=== PATIENT | female | born 1990 | race African-American/Black ===

== ENCOUNTER 2018-04-28 11:15 | Day surgery (SDC) | payer OTHER ==
[~2018-04-28 11:15] MED LIST: ONDANSETRON 4 MG/2 ML VIAL IVP PRN
[2018-04-28] MEDS ORDERED: SODIUM CHLORIDE 0.9% 1,000 ML IV ONE (11:34)
[2018-04-28] MEDS ORDERED: ONDANSETRON 4 MG/2 ML VIAL IVP STA ×2 (11:34→14:46)
[2018-04-28] MEDS ORDERED: KETOROLAC 30 MG/ML VIAL IVP STA (11:34)
--- NOTE | 2018-04-28 11:37 | ED Physician Documentation ---
PD HPI ABD PAIN - Stated complaint Stated Complaint: ABD PX - Chief complaint Chief Complaint: Abd Pain - History obtained from History obtained from: Patient - History of Present Illness Timing - onset: Enter time (0500), Today Timing - duration: Hours Timing - details: Abrupt onset, Still present Quality: Sharp, Pain Location: RUQ Improved by: Laying still Worsened by: Moving, Breathing, Position, Palpation Associated symptoms: Nausea Similar symptoms before: Diagnosis (gallstones) Recently seen: Clinic - Additional information Additional information: 27-year-old female with a history of gallstones has been sent to the emergency department from the primary care clinic at the [place] with acute right upper quadrant abdominal pain. The patient reports that this pain awoke her from sleep this morning it is severe and unrelenting. She has previously been diagnosed with gallstones and she has had numerous episodes of pain never this bad. She states that when she has gone into talk about her gallbladder being removed they were unable to find stones. 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 - Past Surgical History Past Surgical History: Yes /PODIATRIST ASSISTANT: Other - Present Medications Home Medications: Ambulatory Orders Medication Instructions Recorded Confirmed Norgestimate-Ethinyl Estradiol 1 tab PO DAILY 04/28/18 04/28/18 [Ortho Tri-Cyclen Lo Tablet] Pantoprazole [Protonix] 40 mg PO DAILY 04/28/18 04/28/18 RX: Ibuprofen 600 mg PO PRN PRN 04/28/18 04/28/18 Triamcinolone 0.1% Cream [Kenalog 1 applic TOP BID PRN 04/28/18 04/28/18 0.1% Cream] - Allergies Allergies/Adverse Reactions: Allergies Allergy/AdvReac Type Severity Reaction Status Date / Time No Known Drug Allergies Allergy Verified 04/28/18 11:22 - Social History Does the pt smoke?: No Smoking Status: Never smoker Does the pt drink ETOH?: Yes Does the pt have substance abuse?: No PD ED PE NORMAL - Vitals Vital signs reviewed: Yes (normal ) - General General: Alert and oriented X 3, Well developed/nourished, Other (27 y/o female appears to be in 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 ) - HEENT HEENT: Atraumatic, PERRL, EOMI - Neck Neck: Supple, no meningeal sign - Cardiac Cardiac: RRR, No murmur - Respiratory Respiratory: No respiratory distress, Clear bilaterally - Abdomen Abdomen: Soft, Other (RUQ tenderness is obvious and reproducible in location. The gallbladder is sonographically tender. There is no right lower quadrant tenderness to palpation. ) - Back Back: No CVA TTP, No spinal TTP - Derm Derm: Normal color, Warm and dry, No rash - Extremities Extremities: No deformity, No edema - Neuro Neuro: Alert and oriented X 3, mirror maker 2-12 intact, No motor deficit, No sensory deficit, Normal speech Eye Opening: Spontaneous Motor: Obeys Commands Verbal: Oriented GCS Score: 15 - Psych Psych: Normal mood, Normal affect Results - Vitals Vitals: Vital Signs - 24 hr 04/28/18 04/28/18 04/28/18 11:20 11:22 14:21 Temperature 36.2 C L Heart Rate 98 73 Respiratory 18 Rate Blood Pressure 140/105 H 132/83 H O2 Saturation 97 17 L 04/28/18 04/28/18 16:57 18:08 Temperature Heart Rate 89 78 Respiratory 18 18 Rate Blood Pressure 115/78 109/78 O2 Saturation 99 99 Oxygen O2 Source Room air - Labs Labs: Laboratory Tests 04/28/18 04/28/18 04/28/18 11:46 11:46 11:46 WBC 12.1 H RBC 3.94 L Hgb 12.3 Hct 36.8 L MCV 93.4 MCH 31.3 H MCHC 33.5 RDW 12.4 Plt Count 298 MPV 8.0 Neut # (Auto) 9.5 H Lymph # (Auto) 1.7 Rooks # (Auto) 0.7 Eos # (Auto) 0.2 Baso # (Auto) 0.0 Absolute Nucleated RBC 0.00 Nucleated RBC % 0.0 Sodium 137 Potassium 3.7 Chloride 103 Carbon Dioxide 23 Anion Gap 11.0 BUN 7 Creatinine 0.7 Estimated GFR (MDRD) 121 Glucose 93 Calcium 8.5 Total Bilirubin 0.8 AST 17 ALT 16 Alkaline Phosphatase 45 Troponin I < 0.04 Total Protein 7.3 Albumin 3.8 Globulin 3.5 Albumin/Globulin Ratio 1.1 Lipase 31 Urine Color Urine Clarity Urine pH Ur Specific [place] Urine Protein Urine Glucose (UA) Urine Ketones Urine Occult Blood Urine Nitrite Urine Bilirubin Urine Urobilinogen Ur Leukocyte Esterase Urine RBC Urine WBC Ur Squamous Epith Cells Urine Bacteria Ur Microscopic Review Urine Culture Comments Urine HCG, Qual 04/28/18 13:20 WBC RBC Hgb Hct MCV MCH MCHC RDW Plt Count MPV Neut # (Auto) Lymph # (Auto) Rooks # (Auto) Eos # (Auto) Baso # (Auto) Absolute Nucleated RBC Nucleated RBC % Sodium Potassium Chloride Carbon Dioxide Anion Gap BUN Creatinine Estimated GFR (MDRD) Glucose Calcium Total Bilirubin AST ALT Alkaline Phosphatase Troponin I Total Protein Albumin Globulin Albumin/Globulin Ratio Lipase Urine Color YELLOW Urine Clarity CLEAR Urine pH 7.0 Ur Specific [place] 1.015 Urine Protein NEGATIVE Urine Glucose (UA) NEGATIVE Urine Ketones NEGATIVE Urine Occult Blood SMALL H Urine Nitrite NEGATIVE Urine Bilirubin NEGATIVE Urine Urobilinogen 0.2 (NORMAL) Ur Leukocyte Esterase TRACE H Urine RBC None Seen Urine WBC 0-3 Ur Squamous Epith Cells MANY Squamous H Urine Bacteria None Seen Ur Microscopic Review INDICATED Urine Culture Comments NOT INDICATED Urine HCG, Qual NEGATIVE - Rads (name of study) gb ultrasound Radiology: Prelim report reviewed (Impression: No findings of cholelithiasis or cholecystitis.), EMP read indepedently, See rad report Procedures - Bedside sono Bedside sono by EMP: With use of bedside ultrasound the right upper quadrant is imaged the gallbladder is sonographically tender there is evidence of sludge. The gallbladder wall thickness is 0.4 cm. There is no pericholecystic fluid and the gallbladder is not particularly distended. PD MEDICAL DECISION MAKING - ED course Complexity details: considered differential, d/w patient ED course: 27-year-old female with history of gallstones has acute purulent biliary colic and a very tender gallbladder. I do not see evidence of cholecystitis on the bedside ultrasound with the exception of the tender gallbladder on palpation. She does persistent pain, elevated WBC and she does get some relief with the use of dilaudid and zofran. Her diagnostic ultrasound is underwhelming and looks like there may be some sludge. Dr. Dunn is consulted in the case and will evaluate the patient when he is done with his clinic patients. Departure - Departure Disposition: ED Transfer to [facility] Clinical Impression: Gallbladder disease
[2018-04-28 11:52] LABS: BASOPHILS % (AUTO) 0.2 %; EOSINOPHILS # (AUTO) 0.2 10^3/uL (0.0-0.7); EOSINOPHILS % (AUTO) 1.2 %; HGB - HEMOGLOBIN 12.3 g/dL (12.0-16.0); LYMPHOCYTES # (AUTO) 1.7 10^3/uL (1.5-3.5); LYMPHOCYTES % (AUTO) 13.9 %; MEAN CORPUSCULAR HEMOGLOBIN 31.3 pg (27.0-31.0); MEAN CORPUSCULAR HGB CONC 33.5 g/dL (32.0-36.0); MEAN CORPUSCULAR VOLUME 93.4 fL (81.0-99.0); MONOCYTES # (AUTO) 0.7 10^3/uL (0.0-1.0); MONOCYTES % (AUTO) 6.1 %; NEUTROPHILS # (AUTO) 9.5 10^3/uL (1.5-6.6); NEUTROPHILS % (AUTO) 78.6 %; PLT - PLATELET COUNT 298 10^3/uL (130-450); RED BLOOD COUNT 3.94 10^6/uL (4.20-5.40); RED CELL DISTRIBUTION WIDTH 12.4 % (12.0-15.0); WHITE BLOOD COUNT 12.1 x10^3/uL (4.8-10.8)
[2018-04-28] MEDS ORDERED: HYDROmorphone 1 MG/ML CARPUJECT IVP STA ×3 (11:56→19:26)
[2018-04-28] MEDS ORDERED: HYDROmorphone 1 MG/ML CARPUJECT ONE (12:02)
[2018-04-28 12:09] LABS: ALBUMIN 3.8 g/dL (3.2-5.5); ALBUMIN/GLOBULIN RATIO 1.1 (1.0-2.2); BILIRUBIN,TOTAL 0.8 mg/dL (0.2-1.0); CALCIUM 8.5 mg/dL (8.5-10.3); CREATININE 0.7 mg/dL (0.4-1.0); TOTAL PROTEIN 7.3 g/dL (6.7-8.2)
[2018-04-28 13:39] LABS: BILIRUBIN,URINE NEGATIVE (NEGATIVE); GLUCOSE, URINE (UA) NEGATIVE (NEGATIVE); KETONES,URINE (UA) NEGATIVE (NEGATIVE); LEUKOCYTE ESTERASE, URINE TRACE (NEGATIVE); NITRITE,URINE NEGATIVE (NEGATIVE); OCCULT BLOOD,URINE SMALL (NEGATIVE); PROTEIN,URINE NEGATIVE (NEGATIVE); UROBILINOGEN,URINE 0.2 (NORMAL) E.U./dL (NORMAL)
[2018-04-28 13:40] LABS: CLARITY,URINE CLEAR (CLEAR); HCG UR QUAL NEGATIVE
[2018-04-28 13:45] LABS: RBC,URINE None Seen /HPF (0-5)
[2018-04-28 13:46] LABS: BACTERIA,URINE None Seen /HPF (None Seen); SQUAMOUS EPITHELIAL CELL,UR MANY Squamous (<= Few)
--- NOTE | 2018-04-28 14:28 | Ultrasound Report ---
Reason: RUQ pain Procedure Date: 04/28/2018 Accession Number: [id number] / [id number] Procedure: US - Abdomen Limited CPT Code: FULL RESULT: EXAM: Abdomen Limited DATE: 04/28/2018 1:06 PM CLINICAL HISTORY: RUQ pain COMPARISON: None. TECHNIQUE: Real-time scanning was performed with static images obtained. FINDINGS: Liver: Normal echotexture. 16.6 cm longitudinally. Normal directional portal venous blood flow. Gallbladder: No stones. Borderline gallbladder wall thickness 3.6 mm. Common bile duct: 5.4 mm Right kidney: 9.4 cm. No hydronephrosis. Free fluid: None IMPRESSION: No findings of cholelithiasis or cholecystitis. RADIA
[2018-04-28] MEDS: HYDROmorphone 1 MG/ML CARPUJECT IVP STA ×2 (15:11)
--- NOTE | 2018-04-28 19:29 | CONSULTATION NOTE ---
Referring Provider Name of Referring Provider:: Dr. Charles Pride Consult Date: 04/28/18 Chief Complaint - Chief Complaint Chief Complaint: Severe postprandial right upper quadrant pain History of Present Illness - Admitted From Admitted From:: Outpatient - History Obtained From Records Reviewed: Yes History obtained from: Patient Exam Limitations: Lack of documentation from [facility] - History of Present Illness HPI Comment/Other: This very pleasant but clearly in pain 27-year-old female was evaluated in room 6 at [facility]'s emergency department. I was called by Dr. Charles Pride to evaluate this patient for likely symptomatic cholelithiasis. The story is a little bit hazy in the sense that the patient has been told that she has stones/sludge and other times has been told that there are no stones. A CCK-HIDA was obtained looking for acalculus cholecystitis and the patient was told that the results were inconclusive. I do not have any of these records. The patient states that the pain is very sharp and lancinating occurring after eating. She has had this for years. Today's episode which woke her up from sleep was the worst she had ever experienced. The patient denies any hematemesis melena or hematochezia. The patient similarly denies constipation or diarrhea. Additionally the patient denies any weight loss. 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 : reports: None HEENT: reports: None Psych: reports: None Musculoskeletal: reports: None Derm: reports: None MRSA Hx?: No - Past Surgical History /ACCOUNTS PAYABLE REPRESENTATIVE: reports: Other Meds/Allgy - Home Medications Home Medications: Ambulatory Orders Medication Instructions Recorded Confirmed Ibuprofen 600 mg PO PRN PRN 04/28/18 04/28/18 Norgestimate-Ethinyl Estradiol 1 tab PO DAILY 04/28/18 04/28/18 [Ortho Tri-Cyclen Lo Tablet] Pantoprazole [Protonix] 40 mg PO DAILY 04/28/18 04/28/18 Triamcinolone 0.1% Cream [Kenalog 1 applic TOP BID PRN 04/28/18 04/28/18 0.1% Cream] - Allergies Allergies/Adverse Reactions: Allergies Allergy/AdvReac Type Severity Reaction Status Date / Time No Known Drug Allergies Allergy Verified 04/28/18 11:22 Review of Systems - Constitutional Constitutional: denies: Fatigue, Fever, Chills - Eyes Eyes: denies: Pain - Ears, Nose & Throat Ears, Nose & Throat: denies: Ear pain - Cardiovascular Cariovascular: denies: Irregular heart rate, Palpitations, Chest pain - Respiratory Respiratory: denies: Cough, Sputum production - Gastrointestinal Gastrointestinal: reports: Abdominal pain, Nausea, Vomiting. denies: Diarrhea, Change in bowel habits, Rectal bleeding, Black stools, Bloody stools, [place] blood emesis - Musculoskeletal Musculoskeletal: denies: Muscle pain - Integumentary Integumentary: denies: Rash - Neurological Neurological: denies: General weakness, Focal weakness Exam - Vital Signs Reviewed Vital Signs: Yes Vital Signs: Vital Signs x48h Pulse Resp BP Pulse Ox 04/28/18 18:08 78 18 109/78 99 04/28/18 16:57 89 18 115/78 99 04/28/18 14:21 73 132/83 H 17 L - Physical Exam General Appearance: positive: Moderate distress (Still suffering with moderately severe right upper quadrant pain despite pain medication.) Eyes Bilateral: positive: No lid inflammation, Conjunctivae nml, No scleral icterus ENT: positive: Dry mucous membranes Neck: positive: Trachea midline Respiratory: positive: Chest non-tender, No respiratory distress, Breath sounds nml Cardiovascular: positive: Regular rate & rhythm Abdomen: positive: Nml bowel sounds, Tenderness (In the right upper quadrant underneath the rib cage.) Skin: positive: Color nml Neurologic/Psychiatric: positive: Oriented x3, Motor nml, Sensation nml, Mood/affect nml Conclusion/Plan - Diagnosis Diagnosis: Symptomatic cholelithiasis (likely sludge) - Plan Plan: Laparoscopic cholecystectomy, possible open cholecystectomy, possible intraoperative cholangiogran, possible common bile duct exploration. The indications, procedure, alternatives including no surgery, ingestion of Actigall, possible risks including infection (deep or superficial), bleeding requiring transfusion (with all of its risks), common bile duct injury requring repair and additional surgery, and were fully explained to the patient and all questions answered. I also explained the pathophysiology. I explained that following the surgery I did not want her lifting anything over 15 pounds for 6 weeks to allow for optimal healing and to decrease the likelihood that a hernia would occur. All questions were fully answered. Verbal and written consent was obtained. The patient, in preparation for surgery will be nothing by mouth, and receive 2 gm of Cephalexin with induction. I asked her to contact me with any surgical questions and her concerns and she stated that she would. I asked her to let me know if there is any way we can make her stay at [facility] more comfortable and she stated that she would let me know. The plan is to do this operation as an outpatient procedure and to discharge her home following the procedure. 45 minutes of [id number] time spent with the patient, over 80% in discussion, coordination of her care, and completion of the requisite paperwork - Lab Results Lab results reviewed: Yes Fish Bones: 04/28/18 11:46 04/28/18 11:46 - Diagnostic Imaging Results Diagnostic Imaging Results: positive: Final report reviewed (Slightly thickened wall expecting sludge.)
--- NOTE | 2018-04-28 20:35 | ANESTHESIA ---
Pre-Anesthesia VS, & Labs - Diagnosis Diagnosis Symptomatic cholelithiasis (likely sludge) - Procedure laparoscopic cholecystectomy Vital Signs: Temp Pulse Resp BP Pulse Ox 36.2 C L 68 18 119/66 99 04/28/18 11:20 04/28/18 20:02 04/28/18 20:02 04/28/18 20:02 04/28/18 20:02 Height 5 ft 9 in Weight (kg) 92.533 kg Body Mass Index 30.1 - NPO >8 hours - Is Patient ?: No - Lab Results Current Lab Results: Laboratory Tests 04/28/18 11:46: Troponin I < 0.04 04/28/18 11:46: Sodium 137, Potassium 3.7, Chloride 103, Carbon Dioxide 23, Anion Gap 11.0, BUN 7, Creatinine 0.7, Estimated GFR (MDRD) 121, Glucose 93, Calcium 8.5, Total Bilirubin 0.8, AST 17, ALT 16, Alkaline Phosphatase 45, Total Protein 7.3, Albumin 3.8, Globulin 3.5, Albumin/Globulin Ratio 1.1, Lipase 31 04/28/18 11:46: WBC 12.1 H, RBC 3.94 L, Hgb 12.3, Hct 36.8 L, MCV 93.4, MCH 31.3 H, MCHC 33.5, RDW 12.4, Plt Count 298, MPV 8.0, Neut # (Auto) 9.5 H, Lymph # (Auto) 1.7, [place] # (Auto) 0.7, Eos # (Auto) 0.2, Baso # (Auto) 0.0, Absolute Nucleated RBC 0.00, Nucleated RBC % 0.0 Lab results reviewed: Yes Fish Bones: 04/28/18 11:46 04/28/18 11:46 Home Medications and Allergies Home Medications: Ambulatory Orders Ibuprofen 600 mg PO PRN PRN 04/28/18 Norgestimate-Ethinyl Estradiol [Ortho Tri-Cyclen Lo Tablet] 1 tab PO DAILY 04/28/18 Pantoprazole [Protonix] 40 mg PO DAILY 04/28/18 Triamcinolone 0.1% Cream [Kenalog 0.1% Cream] 1 applic TOP BID PRN 04/28/18 Active Medications Hydromorphone HCl (Dilaudid Inj Carp) 1 mg IVP ONCE STA Stop: 04/28/18 19:27 Last Admin: 04/28/18 19:34 Dose: 1 mg Ibuprofen 600 mg PO PRN PRN 04/28/18 Norgestimate-Ethinyl Estradiol [Ortho Tri-Cyclen Lo Tablet] 1 tab PO DAILY 04/28/18 Pantoprazole [Protonix] 40 mg PO DAILY 04/28/18 Triamcinolone 0.1% Cream [Kenalog 0.1% Cream] 1 applic TOP BID PRN 04/28/18 Allergies/Adverse Reactions: Allergies Allergy/AdvReac Type Severity Reaction Status Date / Time No Known Drug Allergies Allergy Verified 04/28/18 11:22 Anes History & Medical History - Anesthetic History Anesthesia Complications: reports: No previous complications Family history of Anesthesia Complications: Denies Family history of Malignant Hyperthermia: Denies - Medical History Cardiovascular: reports: None Pulmonary: reports: None Gastrointestinal: reports: GERD Urinary: reports: None Neuro: reports: None Musculoskeletal: reports: None Endocrine/Autoimmune: reports: None Blood Disorders: reports: None Skin: reports: None Smoking Status: Never smoker - Surgical History Gynecologic: Other Exam General: Alert Dental: WNL Mouth Openin Fingerbreadth Neck Mobility: Normal Mallampati classification: II Thyromental Distance: greater than 6 cm Respiratory: Lungs clear, Normal breath sounds, No respiratory distress, No accessory muscle use Cardiovascular: Regular rate, Normal S1, Normal S2, No murmurs Mental/Cognitive Status: Alert/Oriented X3, Normal for patient Cognitive Status: Within normal limits Plan Anesthesia Type: General Consent for Procedure(s) Verified and Reviewed: Yes Code Status: Attempt Resuscitation ASA classification: 2-Mild systemic disease Is this case an emergency?: Yes
[2018-04-28] MEDS ORDERED: BUPIVACAINE 0.5% PF 30 ML VIAL ONE (21:25)
[2018-04-28] MEDS ORDERED: LACTATED RINGERS 1,000 ML IV ONE (21:37)
[2018-04-28] MEDS ORDERED: BUPIVACAINE 0.5% PF 30 ML VIAL INFIL ONE ×2 (22:13)
[2018-04-28] MEDS ORDERED: ONDANSETRON 4 MG/2 ML VIAL IVP ONE (22:18)
[2018-04-28] MEDS ORDERED: NEOSTIGMINE 1 MG/1 ML 10 ML MDV IVP ONE (22:18)
[2018-04-28] MEDS ORDERED: GLYCOPYRROLATE 1 MG/5 ML VIAL IVP ONE (22:18)
[2018-04-28] MEDS ORDERED: KETOROLAC 30 MG/ML VIAL IVP ONE (22:18)
[2018-04-28] MEDS ORDERED: PROPOFOL 200 MG/20 ML VIAL IVP ONE (22:18)
[2018-04-28] MEDS ORDERED: LIDOCAINE-MPF 2% 5 ML VIAL IM ONE (22:18)
[2018-04-28] MEDS ORDERED: ROCURONIUM 50 MG/5 ML VIAL IVP ONE (22:18)
[2018-04-28] MEDS ORDERED: ceFAZolin 2 GM/50 ML 2 GM/50 ML BAG IV ONE (22:18)
[2018-04-28] MEDS ORDERED: fentaNYL 100 MCG/2 ML VIAL IVP ONE (22:18)
[2018-04-28] MEDS ORDERED: ONDANSETRON 4 MG/2 ML VIAL ONE (23:10)
--- NOTE | 2018-04-28 23:10 | OPERATIVE REPORT ---
Operative Report - General Procedure Date: 04/28/18 Planned Procedure: Laparoscopic cholecystectomy, possible open cholecystectomy, possible intra Pre-Op Diagnosis: Symptomatic cholelithiasis Procedure Performed: Laparoscopic cholecystectomy and small umbilical herniorrhaphy Post Op Diagnosis: Symptomatic cholelithiasis and small umbilical hernia - Procedure Note Primary Surgeon: Charles Hernandez MD Anesthesia Provider: Charles Denney MD Anesthesia Technique: General ET tube, Local (30 mL of half percent Marcaine) IV Fluids (mL): 500 Estimated Blood Loss (mL): 5 Drain/Tube Type: Other (None.) Complications: None. - Other Other Information/Narrative: OPERATIVE DESCRIPTION/REPORT: After verbal and written informed consent was obtained detailing the risks of infection, bleeding requiring transfusion with its risks, nerve injury, and , as well as the possibility of a colostomy, and after I met with the patient confirming the surgery, the patient was brought to the operative suite and placed supine on the operating table. Great care was taken to avoid pressure points to prevent pressure necrosis or nerve injury. Monitoring devices were applied along with TEDs and pneumatic compressive stockings (to prevent DVT). The patient received preoperative antibiotics for surgical prophylaxis. Dr. Charles Denney sedated and anesthetized the patient for the entire procedure. The patient was prepped and draped in the usual sterile manner. A "time in" then confirmed that the patient was identified with 3 identifiers (name, date and medical record number), the history and physical was in the chart, the signed consent confirming the procedure was in the chart, the patient was in the correct position, the aforementioned prophylactic measures were in place or given, we had the correct personnel and equipment to complete the procedure and that anesthesia, surgery and nursing were given an opportunity to express any concerns. With the agreement of everyone in the room, we proceeded with the operation. The initial incision was at the umbilicus and dissection to a small umbilical hernia was completed using blunt dissection. The fascia on either side was grasped with a Lizz the peritoneum was grasped and incised using Metzenbaum scissors. In this location, a 12 mm blunt tipped, balloon tipped port was placed and the balloon was inflated to keep the port in position. The abdominal cavity was insufflated with carbon dioxide to steady-state pressure of 15 mmHg. Three additional 5 mm ports were placed in standard location for laparoscopic cholecystectomy (subxiphoid and 2 right subcostal) under direct vision of the 30 degree laparoscope and without incident. The patient was then placed in reverse Trendelenburg position and was rotated slightly to their left. The gallbladder fundus was grasped with an atraumatic grasper. I identified the infundibulum, and this was then grasped and retracted inferior and laterally. Dissection was then begun in the angle of Calot. The cystic duct and (slightly medially and posteriorly) cystic artery were clearly identified. The critical view was obtained. Two clips proximally and one clip distally were used to control both the cystic duct and cystic artery. The clips were carefully placed to avoid occluding the juncture with the common bile duct. Both the cystic duct and then the cystic artery were then transected with laparoscopic marcus. The gallbladder was then removed from its fossa in a retrograde fashion using electrocautery. With the 30 degree 5 mm scope in the subxiphoid position, the gallbladder was placed in an EndoCatch bag to be extracted through the 12 mm port site. No irrigation was necessary as there was absolutely no spillage of blood or bile. I inspected the gallbladder fossa and there was no bleeding or bile leak. Clips on the cystic duct and cystic artery appeared to be secure. I briefly visually explored the abdomen. Other than a small hemangioma on the anterior surface of the liver just to the patient's right of the falciform ligament, there was no other evidence of overt pathology. I injected the port sites at the peritoneal, fascial, and skin levels under direct vision with 0.5% Marcaine. All ports and the EndoCatch containing the gallbladder were removed. Following gallbladder removal, the remaining carbon dioxide was expelled from the abdomen. The fascia at the umbilicus was reapproximated using 2 [id number] 0 Vicryl sutures thus repairing the umbilical hernia. The skin at each port site was approximated using a subcuticular 4-0 Monocryl. The surgical count of instruments, needles and sponges was reported as correct twice. Mastisol, Steri-Strips and sterile surgical dressings were applied. The patient was then awakened from anesthesia, extubated, and having tolerated the procedure well, was transported to the recovery room. No complications were encountered. A "time out" confirmed the operation performed, the fluids given, the estimated blood loss and anesthesia, surgery and nursing were given an opportunity to express any concerns. Dragsusan disclaimer: This document was created in part using voice recognition technology. Because of the inherent limitations of the system ([employer]'s [employer] Dict[employer] user manual states that the licensee understands that speech recognition is a statistical process and that recognition errors are inherent in the process), occasional same sounding word substitutions and grammatical errors do occur and persist despite proofreading. Please read this document for context.
[2018-04-28] MEDS ORDERED: ONDANSETRON 4 MG/2 ML VIAL IVP PRN (23:15)
[2018-04-28] MEDS ORDERED: HYDROcod/ACETAM 5/325 MG TABLET PO PRN (23:15)
[2018-04-28] MEDS ORDERED: HYDROcod/ACET 5/325 Prepack 4 PO STA ×2 (23:17)
[2018-04-28] MEDS: fentaNYL 100 MCG/2 ML VIAL ONE ×2 (23:18→23:23)
[2018-04-28] MEDS: HYDROmorphone 0.5 MG/0.5 ML SYRINGE IVP PRN (23:36)
[2018-04-28] MEDS ORDERED: HYDROmorphone 0.5 MG/0.5 ML SYRINGE ONE ×2 (23:38→23:53)
[2018-04-29] MEDS: HYDROmorphone 0.5 MG/0.5 ML SYRINGE IVP PRN ×2 (01:17→02:53)
[2018-04-29] MEDS: HYDROcod/ACETAM 5/325 MG TABLET PO PRN ×3 (01:18→08:56)
[2018-04-29] MEDS ORDERED: HYDROmorphone 0.5 MG/0.5 ML SYRINGE ONE ×2 (01:19→02:52)
[2018-04-29] MEDS ORDERED: SODIUM CHLORIDE FLUSH 0.9% 10 ML SYRINGE ONE ×2 (01:33→02:53)
[2018-04-29 07:26] VITALS: BP 114/67
== END 2018-04-29 09:15 | disposition home or self-care (01) ==
LOC: EDUNIT# → EDBD → ED 11:15 → OR 17:00 → OBS 04-29 00:15 → OR 04-29 09:15
PROVIDERS: ATTEND Surgery
PROC: 0FT44ZZ Resection of Gallbladder, Percutaneous Endoscopic Approach (ICD-10-PCS; principal; 2018-04-28 20:00)
DX: K80.20 Calculus of gallbladder without cholecystitis without obstruction (principal); K42.9 Umbilical hernia without obstruction or gangrene; D18.03 Hemangioma of intra-abdominal structures; K21.9 Gastro-esophageal reflux disease without esophagitis; N83.209 Unspecified ovarian cyst, unspecified side
CPT/HCPCS: 36415; 47562; 76705; 80053; 81001; 81025; 83690; 84484; 85025; 96361; 96374; 96375; 96376; 99284; 99285; A9270; J0690; J1170; J7120; 81003; 87086

== ENCOUNTER 2018-07-18 13:57 | Emergency (ER) | payer OTHER ==
--- NOTE | 2018-07-18 14:07 | ED Physician Documentation ---
PD HPI URI - Stated complaint Stated Complaint: COUGHING/DIFFICULTY BREATHING - Chief complaint Chief Complaint: Resp - History obtained from History obtained from: Patient - History of Present Illness Timing - onset: How many days ago (3-4) Timing duration: Days (3-4 days of cough and feeling wheezing. Went to [facility] and got neb treatment with improvement but no Rx for steroids nor cough med.) Timing details: Gradual onset, Still present Associated symptoms: Nasal congestion, Sore throat, Productive cough. No: Fever, Swollen nodes Contributing factors: COPD / asthma Improves by: MDI/nebulizer (helps for short time) Worsened by: Activity Recently seen: Clinic (2 days ago) Review of Systems Constitutional: denies: Fever, Chills Nose: reports: Congestion. 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 HEENT: None Psych: None Musculoskeletal: None Derm: None - Past Surgical History Past Surgical History: Yes /GUEST RELATIONS OFFICER: Other - Present Medications Home Medications: Ambulatory Orders Medication Instructions Recorded Confirmed Ibuprofen 600 mg PO PRN PRN 04/28/18 04/28/18 Norgestimate-Ethinyl Estradiol 1 tab PO DAILY 04/28/18 04/28/18 [Ortho Tri-Cyclen Lo Tablet] Pantoprazole [Protonix] 40 mg PO DAILY 04/28/18 04/28/18 Triamcinolone 0.1% Cream [Kenalog 1 applic TOP BID PRN 04/28/18 04/28/18 0.1% Cream] Albuterol Sulf [Ventolin Hfa 1 - 2 puffs INH Q4HR PRN #1 inhaler 07/18/18 Inhaler] Amoxicillin 500 mg PO TID #21 capsule 07/18/18 Benzonatate [Tessalon Perle] 100 - 200 mg PO TID PRN #30 capsule 07/18/18 Dexamethasone [Decadron] 4 mg PO DAILY #8 tablet 07/18/18 - Allergies Allergies/Adverse Reactions: Allergies Allergy/AdvReac Type Severity Reaction Status Date / Time No Known Drug Allergies Allergy Verified 02/13/19 11:22 - Social History Does the pt smoke?: No Smoking Status: Never smoker Does the pt drink ETOH?: Yes Does the pt have substance abuse?: No - Immunizations Immunizations are current?: Yes PD ED PE NORMAL - Vitals Vital signs reviewed: Yes - General General: Alert and oriented X 3, No acute distress (but is having repetitive dry cough), Well developed/nourished - HEENT HEENT: Ears normal, Pharynx benign - Neck Neck: Supple, no meningeal sign, No adenopathy - Cardiac Cardiac: RRR, No murmur - Respiratory Respiratory: No: Clear bilaterally (has mild scattered wheezing. No coarse sounds. ) - Abdomen Abdomen: Soft, Non tender - Derm Derm: Normal color, Warm and dry, No rash Results - Vitals Vitals: Vital Signs - 24 hr 07/18/18 07/18/18 07/18/18 13:58 14:20 14:36 Temperature 36.6 C Heart Rate 127 H 112 H 115 H Respiratory 24 16 18 Rate O2 Saturation 97 97 Oxygen O2 Source Room air PD MEDICAL DECISION MAKING - ED course Complexity details: re-evaluated patient (improved breathing and minimal cough after neb. ), considered differential, d/w patient Departure - Departure Disposition: 01 Home, Self Care Clinical Impression: Upper respiratory infection Qualifiers: URI type: unspecified URI Qualified Code(s): J06.9 - Acute upper respiratory infection, unspecified Exacerbation of asthma Qualifiers: Asthma severity: mild Asthma persistence: intermittent Qualified Code(s): J45.21 - Mild intermittent asthma with (acute) exacerbation Condition: Stable Record reviewed to determine appropriate education?: Yes Instructions: ED Bronchitis Asthmatic Follow-Up: [facility] [Provider Group] Prescriptions: Albuterol Sulf [Ventolin Hfa Inhaler] 1 - 2 puffs INH Q4HR PRN #1 inhaler PRN Reason: Shortness Of Air/Wheezing Amoxicillin 500 mg PO TID #21 capsule Benzonatate [Tessalon Perle] 100 - 200 mg PO TID PRN #30 capsule PRN Reason: Cough Dexamethasone [Decadron] 4 mg PO DAILY #8 tablet Comments: Continue albuterol inhaler 2 to 3 puffs 4 times a day and extra times as needed for cough and wheezing. Amoxicillin as directed for potential infection concurrent with the asthma flareup. Decadron steroid for a week. Add Tessalon if needed for cough. Recheck if not improving over the next couple of days. Discharge Date/Time: 07/18/18 14:53
[2018-07-18] MEDS ORDERED: BENZONATATE 100 MG CAPSULE PO STA (14:12)
[2018-07-18] MEDS ORDERED: diphenhydrAMINE ELIXIR 25 MG/10 ML UDC PO STA (14:12)
[2018-07-18] MEDS ORDERED: ALBUTEROL NEB 2.5 MG/3 ML INH STA (14:12)
[2018-07-18] MEDS ORDERED: CHERRY SYRUP 10 ML UDC PO ONE (14:12)
[2018-07-18] MEDS ORDERED: DEXAMETHASONE 10 MG/ML VIAL PO STA (14:12)
== END 2018-07-18 14:53 | disposition home or self-care (01) ==
LOC: ED 13:57
DX: J06.9 Acute upper respiratory infection, unspecified (principal); J45.21 Mild intermittent asthma with (acute) exacerbation
CPT/HCPCS: 94640; 94664; 99283; A9270

== ENCOUNTER 2018-12-09 22:11 | Emergency (ER) | payer OTHER ==
[2018-12-09] MEDS ORDERED: ONDANSETRON 4 MG/2 ML VIAL IVP STA (22:29)
[2018-12-09] MEDS ORDERED: SODIUM CHLORIDE 0.9% 1,000 ML IV ONE (22:29)
[2018-12-09] MEDS ORDERED: MORPHINE 2 MG/ML CARPUJECT IVP STA (22:29)
--- NOTE | 2018-12-09 22:29 | ED Physician Documentation ---
History of Present Illness - Stated complaint Stated Complaint: ABD PX - Chief complaint Chief Complaint: Abd Pain - Additonal information Additional information: This is a 28-year-old female with a history of PCOS and hemorrhagic ovarian cyst who presents with severe left lower quadrant abdominal pain. Patient states that this morning she had some mild left lower quadrant pain, over the day this has worsened and became more severe this evening. She states that it is 10 out of 10 and radiates down towards her vagina. She is not currently sexually active, she states she has an abnormally small uterus and is unable to get . She denies any vaginal bleeding. She states in the past she has had significant hemorrhage into her abdomen and she has required surgery for her ovarian cysts. She does feel nauseated. No fever. 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 : None HEENT: None Psych: None Musculoskeletal: None Derm: None - Past Surgical History Past Surgical History: Yes /CARVING MACHINE OPERATOR: Other - Present Medications Home Medications: Ambulatory Orders Medication Instructions Recorded Confirmed Ibuprofen 600 mg PO PRN PRN 04/28/18 04/28/18 Norgestimate-Ethinyl Estradiol 1 tab PO DAILY 04/28/18 04/28/18 [Ortho Tri-Cyclen Lo Tablet] Pantoprazole [Protonix] 40 mg PO DAILY 04/28/18 04/28/18 Triamcinolone 0.1% Cream [Kenalog 1 applic TOP BID PRN 04/28/18 04/28/18 0.1% Cream] Albuterol Sulf [Ventolin Hfa 1 - 2 puffs INH Q4HR PRN #1 inhaler 07/18/18 Inhaler] Amoxicillin 500 mg PO TID #21 capsule 07/18/18 Benzonatate [Tessalon Perle] 100 - 200 mg PO TID PRN #30 capsule 07/18/18 dexAMETHasone [Decadron] 4 mg PO DAILY #8 tablet 07/18/18 Hydrocodone/Acetaminophen 1 - 2 each PO Q6H PRN #5 tablet 12/10/18 [Hydrocodon-Acetaminophen 5-325] - Allergies Allergies/Adverse Reactions: Allergies Allergy/AdvReac Type Severity Reaction Status Date / Time No Known Drug Allergies Allergy Verified 12/09/18 22:26 - Social History Does the pt smoke?: No Smoking Status: Never smoker Does the pt drink ETOH?: Yes Does the pt have substance abuse?: No - Immunizations Immunizations are current?: Yes PD ED PE NORMAL - Vitals Vital signs reviewed: Yes - General General: Alert and oriented X 3, Other (Uncomfortable appearing) - HEENT HEENT: PERRL - Neck Neck: Supple, no meningeal sign - Cardiac Cardiac: Other (Tachycardic, regular rhythm.) - Respiratory Respiratory: No respiratory distress, Clear bilaterally - Abdomen Abdomen: Other (Soft, tender to palpation in the left lower quadrant. Remainder of her abdomen is nontender to palpation. No guarding.) - Derm Derm: Warm and dry - Extremities Extremities: No deformity - Neuro Neuro: Alert and oriented X 3 - Psych Psych: Normal mood, Normal affect Results - Vitals Vitals: Oxygen O2 Source Room air - Labs Labs: Microbiology 12/10/18 02:35 Wet Prep - Final Genital - Vaginal Laboratory Tests 12/09/18 12/09/18 12/09/18 22:20 22:20 22:24 WBC 19.0 H RBC 4.29 Hgb 13.2 Hct 41.2 MCV 96.0 MCH 30.8 MCHC 32.0 RDW 12.3 Plt Count 327 MPV 9.8 Neut # (Auto) Not Reportable Lymph # (Auto) Not Reportable [place] # (Auto) Not Reportable Eos # (Auto) Not Reportable Baso # (Auto) Not Reportable Absolute Nucleated RBC Not Reportable Total Counted 100 Band Neuts % (Manual) 0 Abnorm Lymph % (Manual) 0 Nucleated RBC % Not Reportable Neutrophils # (Manual) 13.3 H Lymphocytes # (Manual) 4.6 H Monocytes # (Manual) 0.8 Eosinophils # (Manual) 0.2 Basophils # (Manual) 0.2 H Differential Comment MANUAL DIFFERENTIAL Manual Slide Review Indicated WBC Morphology NORMAL APPEARANCE Platelet Estimate NORMAL (130-450,000) Platelet Morphology NORMAL APPEARANCE RBC Morph Micro Appear NORMAL APPEARANCE Sodium Potassium Chloride Carbon Dioxide Anion Gap BUN Creatinine Estimated GFR (MDRD) Glucose Calcium Total Bilirubin AST ALT Alkaline Phosphatase Total Protein Albumin Globulin Albumin/Globulin Ratio Lipase Urine Color YELLOW Urine Clarity CLEAR Urine pH 6.0 Ur Specific [place] >=1.030 H >=1.030 H Urine Protein NEGATIVE Urine Glucose (UA) NEGATIVE Urine Ketones NEGATIVE Urine Occult Blood MODERATE H Urine Nitrite NEGATIVE Urine Bilirubin NEGATIVE Urine Urobilinogen 0.2 (NORMAL) Ur Leukocyte Esterase NEGATIVE Urine RBC 6-10 H Urine WBC 0-3 Ur Squamous Epith Cells FEW Squamous Urine Bacteria None Seen Ur Microscopic Review INDICATED Urine Culture Comments NOT INDICATED Urine HCG, Qual NEGATIVE 12/09/18 22:24 WBC RBC Hgb Hct MCV MCH MCHC RDW Plt Count MPV Neut # (Auto) Lymph # (Auto) [place] # (Auto) Eos # (Auto) Baso # (Auto) Absolute Nucleated RBC Total Counted Band Neuts % (Manual) Abnorm Lymph % (Manual) Nucleated RBC % Neutrophils # (Manual) Lymphocytes # (Manual) Monocytes # (Manual) Eosinophils # (Manual) Basophils # (Manual) Differential Comment Manual Slide Review WBC Morphology Platelet Estimate Platelet Morphology RBC Morph Micro Appear Sodium 136 Potassium 3.2 L Chloride 102 Carbon Dioxide 23 Anion Gap 11.0 BUN 11 Creatinine 1.0 Estimated GFR (MDRD) 79 L Glucose 101 H Calcium 9.3 Total Bilirubin 1.2 H AST 15 ALT 12 Alkaline Phosphatase 61 Total Protein 8.5 H Albumin 4.6 Globulin 3.9 Albumin/Globulin Ratio 1.2 Lipase 32 Urine Color Urine Clarity Urine pH Ur Specific [place] Urine Protein Urine Glucose (UA) Urine Ketones Urine Occult Blood Urine Nitrite Urine Bilirubin Urine Urobilinogen Ur Leukocyte Esterase Urine RBC Urine WBC Ur Squamous Epith Cells Urine Bacteria Ur Microscopic Review Urine Culture Comments Urine HCG, Qual - Rads (name of study) Pelvic US Radiology: Other (Left ovarian cyst is 2.3 cm with some moderate referred in the pelvis suspicious for ruptured left hemorrhagic ovarian cyst, no evidence of torsion.) CT abd/pelvis W Radiology: Prelim report reviewed (No acute abnormalities of the abdomen or pelvis. Appendix is well-visualized and is normal in appearance.) PD MEDICAL DECISION MAKING - ED course Complexity details: considered differential (Ovarian torsion, ovarian cyst, appendicitis, tubo-ovarian abscess, STI, UTI, nephrolithiasis, pyelonephritis, d iverticulitis.) ED course: Patient presents with severe abdominal pain, she is in significant discomfort and is tachycardic with a sinus tachycardia. She was given IV fluids as well as multiple doses of IV narcotic medications with improvement in her symptoms. A CT scan was performed with this was unremarkable and did not show signs of acute abdominal pathology. Labs are notable for a leukocytosis, normal hemoglobin. Her urine is negative for infection or significant bleeding. A pelvic exam reveals no gross abnormalities, her cervix is small and difficult to find, but there are no signs of vaginal inflammation or cervicitis or abnormal discharge. She is not sexually active and I highly doubt PID/TOA. Pelvic ultrasound was performed which shows a ovarian cyst on the left with a moderate amount of free fluid consistent with a ruptured hemorrhagic cyst. She has good blood flow and no signs of ovarian torsion. On repeat examination patient is feeling improved, her pain has subsided substantially. I discussed the results of her work-up, and patient states that in the past this is very similar to how her hemorrhagic cysts have presented. Given that she is a stable hemoglobin and controlled symptoms, I believe that she is safe for outpatient follow-up. I discussed that if she is having continued or worsening abdominal pain, any lightheadedness, p assing out, or any other concerning symptoms she needs to return to the emergency department for evaluation. Patient agrees with this plan and was discharged home in the care of her friend. Departure - Departure Disposition: 01 Home, Self Care Clinical Impression: Ruptured cyst of ovary Condition: Stable Instructions: Abdominal Pain Follow-Up: Your,PCP [Other] (For follow up as soon as possible, within 3 days) Prescriptions: Hydrocodone/Acetaminophen [Hydrocodon-Acetaminophen 5-325] 1 - 2 each PO Q6H PRN #5 tablet PRN Reason: pain Comments: You were seen today for abdominal pain, Your ultrasound suggest that this is caused by a ruptured ovarian cyst on the left side. Your hemoglobin/red blood cell count is normal at this time, but if you develop any lightheadedness, passing out, increasing abdominal pain, or weakness, or shortness of breath, return to the emergency department immediately. Please follow-up with your primary care provider as soon as possible. Do not drink alcohol or drive while taking narcotic pain medication. Note that many narcotic pain relievers also contain Tylenol/acetaminophen. Please ensure that your total dose of acetaminophen from all sources does not exceed 3 g (3000 mg) per day. You may get constipated while on this medication. Take a stool softener such as Colace twice a day while you are on it. Also add an [id number] laxative such as senna or MiraLAX on any day that you do not have a bowel movement. If you received a narcotic pain medication or sedative while in the emergency department, do not drive for the next 24 hours. Forms: Activity restrictions Discharge Date/Time: 12/10/18 03:40
[2018-12-09 22:34] LABS: BASOPHILS % (AUTO) 0.4 %; EOSINOPHILS % (AUTO) 1.1 %; HGB - HEMOGLOBIN 13.2 g/dL (12.0-16.0); LYMPHOCYTES % (AUTO) 28.1 %; MEAN CORPUSCULAR HEMOGLOBIN 30.8 pg (27.0-31.0); MEAN PLATELET VOLUME 9.8 fL (7.9-10.8); MONOCYTES % (AUTO) 6.1 %; NEUTROPHILS % (AUTO) 63.6 %; PLT - PLATELET COUNT 327 10^3/uL (130-450); RED BLOOD COUNT 4.29 10^6/uL (4.20-5.40); RED CELL DISTRIBUTION WIDTH 12.3 % (12.0-15.0)
[2018-12-09 22:36] LABS: BILIRUBIN,URINE NEGATIVE (NEGATIVE); CLARITY,URINE CLEAR (CLEAR); GLUCOSE, URINE (UA) NEGATIVE (NEGATIVE); KETONES,URINE (UA) NEGATIVE (NEGATIVE); LEUKOCYTE ESTERASE, URINE NEGATIVE (NEGATIVE); NITRITE,URINE NEGATIVE (NEGATIVE); OCCULT BLOOD,URINE MODERATE (NEGATIVE); PROTEIN,URINE NEGATIVE (NEGATIVE); UROBILINOGEN,URINE 0.2 (NORMAL) E.U./dL (NORMAL)
[2018-12-09 22:36] LABS: ABNORMAL LYMPHS % (MANUAL) 0 %; BAND NEUTROPHILS % (MANUAL) 0 %
[2018-12-09 22:38] LABS: HCG UR QUAL NEGATIVE
[2018-12-09] MEDS ORDERED: IOVERSOL 320 100 ML VIAL IVP ONE ×2 (22:43→23:07)
[2018-12-09 22:44] LABS: BACTERIA,URINE None Seen /HPF (None Seen); SQUAMOUS EPITHELIAL CELL,UR FEW Squamous (<= Few)
[2018-12-09 22:46] LABS: ALBUMIN 4.6 g/dL (3.2-5.5); ALBUMIN/GLOBULIN RATIO 1.2 (1.0-2.2); BILIRUBIN,TOTAL 1.2 mg/dL (0.2-1.0); CALCIUM 9.3 mg/dL (8.5-10.3); TOTAL PROTEIN 8.5 g/dL (6.7-8.2)
[2018-12-09 22:51] LABS: BASOPHILS # (MANUAL) 0.2 10^3/uL (0-0.1); BASOPHILS % (MANUAL) 1 %; DIFFERENTIAL COMMENT MANUAL DIFFERENTIAL; EOSINOPHILS # (MANUAL) 0.2 10^3/uL (0-0.7); LYMPHOCYTES # (MANUAL) 4.6 10^3/uL (1.5-3.5); LYMPHOCYTES % (MANUAL) 24 %; MONOCYTES # (MANUAL) 0.8 10^3/uL (0.0-1.0); PLATELET ESTIMATE, MANUAL NORMAL (130-450,000) (NORMAL); PLATELET MORPHOLOGY NORMAL APPEARANCE (NORMAL); RBC MORPHOLOGY (MULTIPLE) NORMAL APPEARANCE (NORMAL)
[2018-12-09] MEDS ORDERED: HYDROmorphone 2 MG/ML VIAL IVP STA (22:51)
--- NOTE | 2018-12-09 23:50 | CT Report ---
Reason: Severe LLQ abd pain, hx hemorrhagic ovarian cysts Procedure Date: 12/09/2018 Accession Number: [id number] / [id number] Procedure: CT - Abdomen/Pelvis W CPT Code: FULL RESULT: EXAM: CT ABDOMEN AND PELVIS EXAM DATE: 12/09/2018 11:09 PM. CLINICAL HISTORY: Severe LLQ pain. History of hemorrhagic ovarian cysts. COMPARISONS: None. TECHNIQUE: Routine helical CT imaging was performed through the abdomen and pelvis. IV contrast: 100 cc of Optiray 320. Enteric contrast: No. Reconstructions: Coronal and sagittal. In accordance with CT protocol optimization, one or more of the following dose reduction techniques were utilized for this exam: automated exposure control, adjustment of mA and/or KV based on patient size, or use of iterative reconstructive technique. FINDINGS: Lung Bases: Unremarkable. Liver: Several cysts, up to 1.7 cm size. Gallbladder/Bile Ducts: Cholecystectomy. No dilated ducts. Spleen: Normal. Pancreas: Normal. Adrenal Glands: Normal. Kidneys: Normal. No masses or hydronephrosis. Peritoneal Cavity/Bowel: Normal. No free fluid, free air or adenopathy. No masses or acute inflammatory process. The appendix is well visualized and normal. Pelvic Organs: The visualized reproductive organs and bladder are unremarkable. Vasculature: No aneurysms or other significant abnormality. Bones: No significant abnormality. Other: None. IMPRESSION: No acute abnormalities of the abdomen and pelvis. RADIA
[2018-12-10] MEDS ORDERED: HYDROmorphone 2 MG/ML VIAL IVP STA (01:02)
[2018-12-10] MEDS ORDERED: SODIUM CHLORIDE 0.9% 1,000 ML IV ONE (02:42)
--- NOTE | 2018-12-10 02:43 | Ultrasound Report ---
Reason: L adnexal pain, assess for torsion/cysts Procedure Date: 12/10/2018 Accession Number: [id number] / [id number] Procedure: US - Pelvic w/Transvag+Doppler Comp CPT Code: FULL RESULT: EXAM: PELVIC ULTRASOUND EXAM DATE: 12/10/2018 02:23 AM. CLINICAL HISTORY: L adnexal pain, assess for torsion/cysts. COMPARISON: ABDOMEN/PELVIS W/ 12/09/2018 11:05 PM. TECHNIQUE: Realtime transabdominal pelvic scan performed to identify the uterus and adnexa and as an overview of other pelvic structures, followed by transvaginal scan to provide greater detail of the uterus and adnexa, with static image documentation. FINDINGS: Uterus: 2.8 x 1.7 x 1.1 cm, volume 2.7 cc. Anteverted position. Uterus small in size. Masses: None. Endometrium: Not visualized. Cervix: Not visualized. Right Ovary: 3.0 x 2.5 x 2.3 cm, volume 9 cc. Normal echotexture and blood flow. PSV 20.1 cm/s and RI 0.55. Left Ovary: 4.1 x 3.0 x 3.0 cm, volume 19.2 cc. Left ovarian cyst measuring 2.2 x 2.3 x 1.7 cm with internal echoes. Otherwise normal echotexture and blood flow. PSV 17.7 cm/s and RI 0.51. Free Fluid: Moderate free fluid with echoes and septations. IMPRESSION: 1. Left ovarian cyst measuring 2.3 cm with subtle internal echoes and moderate free fluid in the pelvis with echoes and septations. Constellation of findings are suspicious for ruptured hemorrhagic left ovarian cyst. Correlate clinically. 2. No sonographic evidence of ovarian torsion. 3. Small size of uterus, volume 2.7 cc. RADIA
[2018-12-10 03:44] VITALS: BP 110/71
== END 2018-12-10 03:40 | disposition home or self-care (01) ==
LOC: ED 22:11
DX: N83.202 Unspecified ovarian cyst, left side (principal); N85.8 Other specified noninflammatory disorders of uterus; R00.0 Tachycardia, unspecified
CPT/HCPCS: 36415; 74177; 76830; 76856; 80053; 81001; 81025; 83690; 85025; 87210; 93975; 96361; 96374; 96375; 96376; 99284; J1170; Q9967; 81003; 87086

== ENCOUNTER 2019-03-18 19:28 | Emergency (ER) | payer OTHER ==
[2019-03-18 19:58] LABS: BILIRUBIN,URINE NEGATIVE (NEGATIVE); GLUCOSE, URINE (UA) NEGATIVE (NEGATIVE); KETONES,URINE (UA) NEGATIVE (NEGATIVE); LEUKOCYTE ESTERASE, URINE NEGATIVE (NEGATIVE); NITRITE,URINE NEGATIVE (NEGATIVE); OCCULT BLOOD,URINE MODERATE (NEGATIVE); PROTEIN,URINE NEGATIVE (NEGATIVE); UROBILINOGEN,URINE 0.2 (NORMAL) E.U./dL (NORMAL)
[2019-03-18 20:06] LABS: CLARITY,URINE HAZY (CLEAR); HCG UR QUAL NEGATIVE
[2019-03-18 20:06] LABS: BASOPHILS # (AUTO) 0.1 10^3/uL (0.0-0.1); BASOPHILS % (AUTO) 0.5 %; EOSINOPHILS # (AUTO) 0.1 10^3/uL (0.0-0.7); EOSINOPHILS % (AUTO) 0.7 %; HGB - HEMOGLOBIN 14.1 g/dL (12.0-16.0); LYMPHOCYTES # (AUTO) 3.6 10^3/uL (1.5-3.5); LYMPHOCYTES % (AUTO) 19.1 %; MEAN CORPUSCULAR HEMOGLOBIN 31.4 pg (27.0-31.0); MEAN CORPUSCULAR HGB CONC 32.3 g/dL (32.0-36.0); MEAN CORPUSCULAR VOLUME 97.3 fL (81.0-99.0); MONOCYTES # (AUTO) 1.1 10^3/uL (0.0-1.0); MONOCYTES % (AUTO) 5.6 %; NEUTROPHILS # (AUTO) 13.7 10^3/uL (1.5-6.6); NEUTROPHILS % (AUTO) 73.3 %; PLT - PLATELET COUNT 301 10^3/uL (130-450); RED BLOOD COUNT 4.49 10^6/uL (4.20-5.40); RED CELL DISTRIBUTION WIDTH 11.9 % (12.0-15.0); WHITE BLOOD COUNT 18.7 x10^3/uL (4.8-10.8)
[2019-03-18 20:11] LABS: BACTERIA,URINE Rare /HPF (None Seen); SQUAMOUS EPITHELIAL CELL,UR MANY Squamous (<= Few)
--- NOTE | 2019-03-18 20:17 | ED Physician Documentation ---
PD HPI ABD PAIN - Stated complaint Stated Complaint: UPPER ABD PX, N/V - Chief complaint Chief Complaint: Abd Pain - History obtained from History obtained from: Patient - History of Present Illness Timing - onset: Yesterday Timing - details: Gradual onset, Constant, Waxing and waning Pain level max: 8 Pain level now: 4 Quality: Sharp, Pain Location: RUQ Radiation: Right flank Worsened by: Breathing, Position (laying supine) Associated symptoms: Nausea, Vomiting. No: Fever, Diarrhea, Constipation, Dysuria Similar symptoms before: Other (some similarity to previous episode of biliary colic, but has had cholecystectomy) Review of Systems Constitutional: denies: Fever, Chills, Sweats Cardiac: reports: Reviewed and negative Respiratory: reports: Reviewed and negative GI: reports: Abdominal Pain, Nausea, Vomiting. 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 CONTINUITY: Other - Present Medications Home Medications: Ambulatory Orders Medication Instructions Recorded Confirmed Norgestimate-Ethinyl Estradiol 1 tab PO DAILY 04/28/18 03/18/19 [Ortho Tri-Cyclen Lo Tablet] Pantoprazole [Protonix] 40 mg PO DAILY 04/28/18 03/18/19 Albuterol Sulf [Ventolin Hfa 1 - 2 puffs INH Q4HR PRN #1 inhaler 07/18/18 03/18/19 Inhaler] Ondansetron Odt [Zofran] 4 mg TL Q6H PRN #10 tablet 03/18/19 Oxycodone HCl/Acetaminophen 1 - 2 each PO Q6H PRN #14 tablet 03/18/19 [Percocet 5-325 mg Tablet] - Allergies Allergies/Adverse Reactions: Allergies Allergy/AdvReac Type Severity Reaction Status Date / Time No Known Drug Allergies Allergy Verified 03/18/19 19:40 - Social History Does the pt smoke?: No Smoking Status: Never smoker Does the pt drink ETOH?: Yes Does the pt have substance abuse?: No - Immunizations Immunizations are current?: Yes - POLST Patient has POLST: No PD ED PE NORMAL - Vitals Vital signs reviewed: Yes - General General: Alert and oriented X 3, Well developed/nourished, Other (NAD at times, but during H+P she has episodic obvious painful discomfort without apparent specific inciting factor) - HEENT HEENT: Moist mucous membranes - Neck Neck: Supple, no meningeal sign - Cardiac Cardiac: RRR, No murmur - Respiratory Respiratory: No respiratory distress, Clear bilaterally - Abdomen Abdomen: Normal bowel sounds, Soft, Non distended, Other (mild TTP RUQ and epigastrium) - Back Back: No CVA TTP - Derm Derm: Normal color, Warm and dry, No rash Results - Vitals Vitals: Vital Signs - 24 hr 03/18/19 03/18/19 03/18/19 19:38 20:52 21:32 Temperature 37.4 C Heart Rate 109 H 85 86 Respiratory 18 18 16 Rate Blood Pressure 146/76 H 115/71 100/66 O2 Saturation 100 100 99 03/18/19 03/18/19 21:58 23:50 Temperature 37.0 C Heart Rate 81 76 Respiratory 15 16 Rate Blood Pressure 121/68 103/69 O2 Saturation 100 99 Oxygen O2 Source Room air - Labs Labs: Laboratory Tests 03/18/19 03/18/19 03/18/19 19:50 20:00 20:00 WBC 18.7 H RBC 4.49 Hgb 14.1 Hct 43.7 MCV 97.3 MCH 31.4 H MCHC 32.3 RDW 11.9 L Plt Count 301 MPV 10.0 Neut # (Auto) 13.7 H Lymph # (Auto) 3.6 H [place] # (Auto) 1.1 H Eos # (Auto) 0.1 Baso # (Auto) 0.1 Absolute Nucleated RBC 0.00 Nucleated RBC % 0.0 Sodium 136 Potassium 3.5 Chloride 102 Carbon Dioxide 25 Anion Gap 9.0 BUN 12 Creatinine 0.9 Estimated GFR (MDRD) 90 Glucose 95 Calcium 9.3 Total Bilirubin 0.7 AST 14 ALT 15 Alkaline Phosphatase 53 Total Protein 8.0 Albumin 4.4 Globulin 3.6 Albumin/Globulin Ratio 1.2 Lipase 33 Urine Color YELLOW Urine Clarity HAZY Urine pH 7.0 Ur Specific [place] 1.020 Urine Protein NEGATIVE Urine Glucose (UA) NEGATIVE Urine Ketones NEGATIVE Urine Occult Blood MODERATE H Urine Nitrite NEGATIVE Urine Bilirubin NEGATIVE Urine Urobilinogen 0.2 (NORMAL) Ur Leukocyte Esterase NEGATIVE Urine RBC 6-10 H Urine WBC 0-3 Ur Squamous Epith Cells MANY Squamous H Urine Bacteria Rare Ur Microscopic Review INDICATED Urine Culture Comments NOT INDICATED Urine HCG, Qual NEGATIVE - Rads (name of study) CT A/P Radiology: Prelim report reviewed, See rad report PD MEDICAL DECISION MAKING - ED course Complexity details: reviewed old records, reviewed results, re-evaluated patient, considered differential, d/w patient Departure - Departure Disposition: 01 Home, Self Care Clinical Impression: Abdominal pain Condition: Good Instructions: ED Abdominal Pain Unkn Cause Follow-Up: [facility] [Provider Group] - Within 1 week Prescriptions: Ondansetron Odt [Zofran] 4 mg TL Q6H PRN #10 tablet PRN Reason: Nausea / Vomiting Oxycodone HCl/Acetaminophen [Percocet 5-325 mg Tablet] 1 - 2 each PO Q6H PRN #14 tablet PRN Reason: pain Comments: As we discussed, there was a small lesion on your kidney which is likely a benign cyst. There were also a few small lesions on your liver which are probably benign but further testing might be needed; follow up with your doctor to discuss these findings. Discharge Date/Time: 03/18/19 23:56
[2019-03-18 20:18] LABS: ALBUMIN 4.4 g/dL (3.2-5.5); ALBUMIN/GLOBULIN RATIO 1.2 (1.0-2.2); BILIRUBIN,TOTAL 0.7 mg/dL (0.2-1.0); CALCIUM 9.3 mg/dL (8.5-10.3); CREATININE 0.9 mg/dL (0.4-1.0)
[2019-03-18] MEDS ORDERED: KETOROLAC 30 MG/ML VIAL IVP STA (20:31)
[2019-03-18] MEDS ORDERED: ONDANSETRON 4 MG/2 ML VIAL IVP STA ×2 (20:31→21:33)
[2019-03-18] MEDS ORDERED: HYDROmorphone 1 MG/ML CARPUJECT IVP STA (20:31)
[2019-03-18] MEDS ORDERED: SODIUM CHLORIDE 0.9% 1,000 ML IV STA (20:32)
[2019-03-18] MEDS ORDERED: IOVERSOL 320 100 ML VIAL IVP ONE ×2 (21:36→22:06)
--- NOTE | 2019-03-18 22:26 | CT Report ---
Reason: RUQ, right flank pain Procedure Date: 03/18/2019 Accession Number: [id number] / [id number] Procedure: CT - Abdomen/Pelvis W CPT Code: Final Report FULL RESULT: EXAM: CT ABDOMEN AND PELVIS EXAM DATE: 03/18/2019 09:52 PM. CLINICAL HISTORY: RUQ, right flank pain. COMPARISONS: ABDOMEN/PELVIS W/ 12/09/2018 11:05 PM ABDOMEN LIMITED 04/28/2018 12:00 PM. TECHNIQUE: Routine helical CT imaging was performed through the abdomen and pelvis. IV contrast: OPTI 320 100ML. Enteric contrast: No. Reconstructions: Coronal and sagittal. In accordance with CT protocol optimization, one or more of the following dose reduction techniques were utilized for this exam: automated exposure control, adjustment of mA and/or KV based on patient size, or use of iterative reconstructive technique. FINDINGS: Lung Bases: Clear lung bases. The visible heart is normal in size. There is no pericardial effusion. Liver: Several hypoattenuating lesions are again seen in the liver, left greater than right, which have an attenuation value higher than fluid, and there are areas of nodular enhancement within some of the lesions. For reference, the largest is located in the lateral left hepatic lobe and measures 2 cm. Gallbladder/Bile Ducts: Post cholecystectomy clips are seen. There is no intrahepatic or extrahepatic biliary dilatation. Spleen: Normal. Pancreas: Normal. Adrenal Glands: Normal. Kidneys: There is a 7 mm hypoattenuating right upper pole renal lesion, unchanged, which is too small to characterize but likely represent a cyst. No renal mass or hydronephrosis is present. Peritoneal Cavity/Bowel: The intestines are normal in caliber and position. The appendix is normal. There is no evidence of bowel obstruction, free intraperitoneal air, or ascites. No lymphadenopathy is seen. Pelvic Organs: The bladder is normal. The uterus and adnexal structures are within normal limits. There is no free pelvic fluid. Vasculature: Normal. Bones: Normal visible thoracolumbar spinal alignment. No suspicious lytic or blastic lesions. The bones of the pelvis are intact and well aligned. Other: None. IMPRESSION: 1. Normal appendix. 2. No abnormalities to explain the patient's abdominal pain. 3. Hypoattenuating lesions in the liver with suggestion of nodular peripheral areas of enhancement. These likely represent hemangiomas. Further evaluation with ultrasound may be obtained. RADIA
[2019-03-18] MEDS ORDERED: ONDANSETRON ODT 4 MG Prepack 2 TL PRN (23:47)
[2019-03-18] MEDS ORDERED: oxyCODONE/ACET 5/325 Prepack 4 PO STA (23:47)
[2019-03-18 23:56] VITALS: BP 103/69
== END 2019-03-18 23:56 | disposition home or self-care (01) ==
LOC: ED 19:28
DX: R10.11 Right upper quadrant pain (principal); R10.13 Epigastric pain; R11.2 Nausea with vomiting, unspecified; N28.9 Disorder of kidney and ureter, unspecified; K76.9 Liver disease, unspecified
CPT/HCPCS: 36415; 74177; 80053; 81001; 81025; 83690; 85025; 96361; 96374; 96375; 99284; J1170; Q9967; 81003; 87086

== ENCOUNTER 2019-03-29 10:57 | Emergency (ER) | payer OTHER ==
--- NOTE | 2019-03-29 12:58 | XRAY Report ---
Reason: Trauma Procedure Date: 03/29/2019 Accession Number: [id number] / [id number] Procedure: XR - Ankle 3 View RT CPT Code: Final Report FULL RESULT: EXAM: RIGHT ANKLE RADIOGRAPHY EXAM DATE: 03/29/2019 12:41 PM. CLINICAL HISTORY: Trauma, pain. COMPARISON: None. TECHNIQUE: 3 views. FINDINGS: Bones: Normal. No fractures or bone lesions. Joints: Normal. No effusion. No subluxations. The ankle mortise is normally aligned. Soft Tissues: Minimal soft tissue swelling. IMPRESSION: Soft tissue swelling. RADIA
[2019-03-29 13:07] VITALS: BP 112/71
--- NOTE | 2019-03-29 13:21 | ED Physician Documentation ---
History of Present Illness - Stated complaint Stated Complaint: RT LEG/ANKLE INJ - Chief complaint Chief Complaint: Ext Problem - Additonal information Additional information: This is a 28-year-old female presents with right ankle pain. She slipped on some ice this morning and her right leg slipped behind her with her knee flexed and her ankle plantarflexed when she fell. She has pain mostly over the lateral malleolus but radiates somewhat up towards her tibia and fibula. 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 - Present Medications Home Medications: Ambulatory Orders Medication Instructions Recorded Confirmed Norgestimate-Ethinyl Estradiol 1 tab PO DAILY 04/28/18 03/18/19 [Ortho Tri-Cyclen Lo Tablet] Pantoprazole [Protonix] 40 mg PO DAILY 04/28/18 03/18/19 Albuterol Sulf [Ventolin Hfa 1 - 2 puffs INH Q4HR PRN #1 inhaler 07/18/18 03/18/19 Inhaler] Ondansetron Odt [Zofran] 4 mg TL Q6H PRN #10 tablet 03/18/19 Oxycodone HCl/Acetaminophen 1 - 2 each PO Q6H PRN #14 tablet 03/18/19 [Percocet 5-325 mg Tablet] - Allergies Allergies/Adverse Reactions: Allergies Allergy/AdvReac Type Severity Reaction Status Date / Time No Known Drug Allergies Allergy Verified 03/29/19 11:41 - Social History Does the pt smoke?: No Smoking Status: Never smoker Does the pt drink ETOH?: Yes Does the pt have substance abuse?: No - Immunizations Immunizations are current?: Yes - POLST Patient has POLST: No PD ED PE NORMAL - Vitals Vital signs reviewed: Yes - General General: Alert and oriented X 3 - HEENT HEENT: Atraumatic - Cardiac Cardiac: Strong equal pulses - Respiratory Respiratory: No respiratory distress - Extremities Extremities: Other (Legs are symmetric, knees have normal ROM, no bony tenderness over the upper Tib/fib. Pt has some swelling and point tenderness of the right lateral malleolus and over the location of the ATF. She is able to flex and extend with some discomfort. SILT, cap refill brisk. No ecchymosis at this time. No crepitus. Distal foot is non-tender. ) - Neuro Neuro: Alert and oriented X 3 Results - Vitals Vitals: Oxygen O2 Source Room air - Rads (name of study) XR ankle Radiology: Other (No fracture or dislocation) PD MEDICAL DECISION MAKING - ED course ED course: Pt presents with isolated ankle pain after twisting her ankle while falling on ice. XR shows no fracture or dislocation, and based on her exam sprain is most likely, with occult fracture much less likely. She was given crutches and airsplint was applied, I reviewed care and PCP follow up as well as return precautions. Pt verbalized understanding and was discharged in the care of family. Departure - Departure Disposition: 01 Home, Self Care Clinical Impression: Ankle pain Qualifiers: Chronicity: acute Laterality: right Qualified Code(s): M25.571 - Pain in right ankle and joints of right foot Condition: Good Instructions: ED Sprain Ankle, ED RICE Comments: Your x-rays do not show signs of broken bones, I think you likely have a sprain of your ankle. Please use the crutches and the splint until you are able to walk on your foot without limping significantly. Take Tylenol 650 mg and ibuprofen 600 mg every 6 hours as needed for pain. Rest ice and elevate the ankle. If your symptoms are not improving in the next week, follow-up with your primary care provider for a recheck and consideration of further imaging. Discharge Date/Time: 03/29/19 14:05
== END 2019-03-29 14:05 | disposition home or self-care (01) ==
LOC: ED 10:57
DX: M25.571 Pain in right ankle and joints of right foot (principal); W00.0XXA Fall on same level due to ice and snow, initial encounter
CPT/HCPCS: 99282; 99283

== ENCOUNTER 2019-06-27 09:12 | Emergency (ER) | payer OTHER ==
--- NOTE | 2019-06-27 09:27 | ED Physician Documentation ---
PD HPI URI - Stated complaint Stated Complaint: C? 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 - Present Medications Home Medications: Ambulatory Orders Medication Instructions Recorded Confirmed Norgestimate-Ethinyl Estradiol 1 tab PO DAILY 04/28/18 03/18/19 [Ortho Tri-Cyclen Lo Tablet] Pantoprazole [Protonix] 40 mg PO DAILY 04/28/18 03/18/19 Albuterol Sulf [Ventolin Hfa 1 - 2 puffs INH Q4HR PRN #1 inhaler 07/18/18 03/18/19 Inhaler] Ondansetron Odt [Zofran] 4 mg TL Q6H PRN #10 tablet 03/18/19 Oxycodone HCl/Acetaminophen 1 - 2 each PO Q6H PRN #14 tablet 03/18/19 [Percocet 5-325 mg Tablet] Azithromycin [Zithromax] 250 mg PO DAILY #6 tablet 06/27/19 predniSONE [Deltasone] 10 mg PO ONCE #26 tablet 06/27/19 - Allergies Allergies/Adverse Reactions: Allergies Allergy/AdvReac Type Severity Reaction Status Date / Time No Known Drug Allergies Allergy Verified 06/27/19 09:31 - Social History Does the pt smoke?: No Smoking Status: Never smoker Does the pt drink ETOH?: Yes Does the pt have substance abuse?: No - Immunizations Immunizations are current?: Yes - POLST Patient has POLST: No Results - Vitals Vitals: Vital Signs - 24 hr 06/27/19 09:31 Temperature 37.3 C Heart Rate 122 H Respiratory 20 Rate Blood Pressure 159/94 H O2 Saturation 100 Oxygen O2 Source Room air - Rads (name of study) chest Radiology: Prelim report reviewed (Impression: No focal lung consolidation or pleural effusions.), EMP read indepedently, See rad report Departure - Departure Disposition: Home, Self Care Clinical Impression: Asthmatic bronchitis Qualifiers: Asthma severity: mild Asthma persistence: intermittent Asthma complication type: with acute exacerbation Qualified Code(s): J45.21 - Mild intermittent asthma with (acute) exacerbation Condition: Stable Instructions: ED Bronchitis Asthmatic Follow-Up: Abhishek Sullivan MD [Primary Care Provider] - Prescriptions: Azithromycin [Zithromax] 250 mg PO DAILY #6 tablet predniSONE [Deltasone] 10 mg PO ONCE #26 tablet Comments: Today it appears you have an exacerbation of your chronic asthma. We did not find other evidence for an alternative process and we have re-swabbed your nose for coronavirus. The recommendation is to quarantine for 14 days and your test results should be available in 2 days.
[2019-06-27] MEDS ORDERED: ALBUTEROL 1 PUFF INH STA (11:00)
--- NOTE | 2019-06-27 11:14 | XRAY Report ---
Reason: chest pain Procedure Date: 06/27/2019 Accession Number: [id number] / [id number] Procedure: XR - Chest 1 View X-Ray CPT Code: 96290 Final Report FULL RESULT: EXAM: CHEST RADIOGRAPHY EXAM DATE: 06/27/2019 11:07 AM. CLINICAL HISTORY: Chest pain. COMPARISON: None. TECHNIQUE: 1 view. FINDINGS: Lungs/Pleura: No focal lung consolidation. No pleural effusion. No pneumothorax. Mediastinum: Cardiac silhouette size appears unremarkable. Other: None. IMPRESSION: No focal lung consolidation or pleural effusions. RADIA
[2019-06-27 11:40] VITALS: BP 122/76
== END 2019-06-27 11:42 | disposition home or self-care (01) ==
LOC: ED 09:12
DX: J45.21 Mild intermittent asthma with (acute) exacerbation (principal)
CPT/HCPCS: 71045; 81599; 99281; 99284

== ENCOUNTER 2020-10-05 20:44 | Emergency (ER) | payer OTHER ==
--- NOTE | 2020-10-05 21:39 | XRAY Report ---
PROCEDURE: Chest 1 View X-Ray INDICATIONS: soa TECHNIQUE: One view of the chest was acquired. COMPARISON: 06/27/2019 single view chest FINDINGS: Surgical changes and devices: None. Lungs and pleura: No pleural effusions or pneumothorax. Lungs are clear. Mediastinum: Mediastinal contours appear normal. Heart size is normal. Bones and chest wall: No suspicious bony lesions. Overlying soft tissues appear unremarkable. IMPRESSION: Normal for age, source of current symptoms is not seen. Reviewed by: Porfirio Lane MD on 10/05/2020 9:38 PM PDT Approved by: Porfirio Lane MD on 10/05/2020 9:38 PM PDT Station ID: [id number]
--- NOTE | 2020-10-05 22:28 | ED Physician Documentation ---
History of Present Illness - Stated complaint Stated Complaint: S/S COVID - Chief complaint Chief Complaint: Resp - Additonal information Additional information: 30-year-old female who has a past medical history most significant for asthma c ontrolled with Advair presents to the emergency department with 5 days of cough, congestion generalized fatigue body aches and diarrhea. She has not been vaccinated for COVID-19. She denies known sick contacts. No shortness of air, no chest pain. Patient denies loss of taste or smell Review of Systems Constitutional: reports: Fever, Myalgias, Fatigue Eyes: reports: Reviewed and negative Ears: reports: Reviewed and negative Nose: reports: Rhinorrhea / runny nose, Congestion Throat: reports: Reviewed and negative Cardiac: denies: Chest pain / pressure, Palpitations, Pedal edema Respiratory: reports: Cough. denies: Dyspnea GI: reports: Diarrhea. 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 - Present Medications Home Medications: Ambulatory Orders Medication Instructions Recorded Confirmed Norgestimate-Ethinyl Estradiol 1 tab PO DAILY 04/28/18 03/18/19 [Ortho Tri-Cyclen Lo Tablet] Pantoprazole [Protonix] 40 mg PO DAILY 04/28/18 03/18/19 Albuterol Sulf [Ventolin Hfa 1 - 2 puffs INH Q4HR PRN #1 inhaler 07/18/18 03/18/19 Inhaler] Ondansetron Odt [Zofran] 4 mg TL Q6H PRN #10 tablet 03/18/19 Oxycodone HCl/Acetaminophen 1 - 2 each PO Q6H PRN #14 tablet 03/18/19 [Percocet 5-325 mg Tablet] Azithromycin [Zithromax] 250 mg PO DAILY #6 tablet 06/27/19 predniSONE [Deltasone] 10 mg PO ONCE #26 tablet 06/27/19 - Allergies Allergies/Adverse Reactions: Allergies Allergy/AdvReac Type Severity Reaction Status Date / Time No Known Drug Allergies Allergy Verified 06/27/19 09:31 - Social History Does the pt smoke?: No Smoking Status: Never smoker Does the pt drink ETOH?: Yes Does the pt have substance abuse?: No - Immunizations Immunizations are current?: Yes - POLST Patient has POLST: No PD ED PE NORMAL - General General: Alert and oriented X 3, No acute distress - HEENT HEENT: PERRL, Moist mucous membranes, Pharynx benign (Mild posterior pharynx erythema.) - Neck Neck: Supple, no meningeal sign, No adenopathy - Cardiac Cardiac: RRR, No murmur - Respiratory Respiratory: No respiratory distress, Clear bilaterally, Other (No tachypnea or hypoxia. No adventitious breath sounds or wheeze.) - Abdomen Abdomen: Normal bowel sounds, Soft, Non tender, Non distended - Back Back: No CVA TTP, No spinal TTP Results - Vitals Vitals: Vital Signs - 24 hr 10/05/20 20:54 Temperature 37.4 C Heart Rate 97 Respiratory 22 Rate Blood Pressure 147/103 H O2 Saturation 98 Oxygen O2 Source Room air - Labs Labs: Laboratory Tests 10/05/20 21:15 Nasal Adenovirus (PCR) NOT DETECTED Nasal B. parapertussis DNA (PCR) NOT DETECTED Nasal Coronavir 229E PCR NOT DETECTED Nasal Coronavir HKU1 PCR NOT DETECTED Nasal Coronavir NL63 PCR NOT DETECTED Nasal Coronavir OC43 PCR NOT DETECTED Nasal Enterovir/Rhinovir PCR NOT DETECTED Nasal Influenza B PCR NOT DETECTED Nasal Influenza A PCR NOT DETECTED Nasal Parainfluen 1 PCR NOT DETECTED Nasal Parainfluen 2 PCR NOT DETECTED Nasal Parainfluen 3 PCR NOT DETECTED Nasal Parainfluen 4 PCR NOT DETECTED Nasal RSV (PCR) DETECTED A Nasal B.pertussis DNA PCR NOT DETECTED Nasal C.pneumoniae (PCR) NOT DETECTED Teto Human Metapneumo PCR NOT DETECTED Nasal M.pneumoniae (PCR) NOT DETECTED Nasal SARS-CoV-2 (PCR) NOT DETECTED PD MEDICAL DECISION MAKING - ED course Complexity details: reviewed results, re-evaluated patient, d/w patient ED course: 30-year-old female who has a history of asthma typically controlled with Advair and as needed albuterol presents the emergency department for 5 days of cough congestion fatigue body aches and diarrhea. She is concerned she could have COVID-19. Respiratory PCR panel is positive for RSV only. Routine care of a viral URI was discussed with patient. She was advised to obtain the COVID-19 vaccine when she is able. Emergent return precautions discussed. Departure - Departure Disposition: 01 Home, Self Care Clinical Impression: RSV (acute bronchiolitis due to respiratory syncytial virus) Condition: Stable Record reviewed to determine appropriate education?: Yes Instructions: ED Viral Syndrome Ch Comments: Joyce you are seen in the ER today for a number of days of cough, congestion diarrhea, fatigue and body aches. Your viral testing is negative today for COVID-19. You are however positive for RSV. This is a very common virus that causes upper airway congestion cough fatigue. With your history of asthma it is important that you continue to take the albuterol. Do not miss your Advair dosing. Steam showers can help with congestion. If at any point you feel that your symptoms are worsening please return to the ER. I do recommend that you receive the COVID-19 vaccine when you are able.
[2020-10-05 22:33] LABS: B. PARAPERTUSSIS- RESP PCR PAN NOT DETECTED; B. PERTUSSIS- RESP PCR PANEL NOT DETECTED; C. PNEUMONIAE- RESP PCR PANEL NOT DETECTED; CORONAVIRUS 229E-RESP PCR NOT DETECTED; CORONAVIRUS HKU1-RESP PCR NOT DETECTED; CORONAVIRUS NL63-RESP PCR NOT DETECTED; CORONAVIRUS OC43-RESP PCR NOT DETECTED; HUMAN METAPNEUMOVIRUS NOT DETECTED; INFLUENZA A- RESP PCR PANEL NOT DETECTED; INFLUENZA B - RESP PCR PANEL NOT DETECTED; M. PNEUMONIAE- RESP PCR PANEL NOT DETECTED; PARAINFLUENZA VIRUS 1 NOT DETECTED; PARAINFLUENZA VIRUS 2 NOT DETECTED; PARAINFLUENZA VIRUS 3 NOT DETECTED; PARAINFLUENZA VIRUS 4 NOT DETECTED; RHINOVIRUS/ENTEROVIRUS NOT DETECTED; RSV- RESP PCR PANEL DETECTED; SARS-CoV-2 -RESP PCR PANEL NOT DETECTED
[2020-10-05 22:43] VITALS: BP 134/88
== END 2020-10-05 22:42 | disposition home or self-care (01) ==
LOC: ED 20:44
DX: J21.0 Acute bronchiolitis due to respiratory syncytial virus (principal); Z20.822 Contact with and (suspected) exposure to COVID-19
CPT/HCPCS: 0202U; 71045; 99283; 99284